=== PATIENT | male | born 1970 | race Hispanic/Latino ===

== ENCOUNTER 2019-07-23 10:48 | Emergency (ER) | payer BC ==
--- NOTE | 2019-07-23 13:39 | ER ---
Nurse's Notes [facility] Name: Rory Soni Age: 48 yrs Sex: Male : 1970 Arrival Date: 07/23/2019 Time: 10:51 Bed 11 Private MD: Diagnosis: Pain in right shoulder Presentation: 07/23 11:20 Presenting complaint: Patient states: thinks pulled a muscle in right arm X 2 weeks. iw Transition of care: patient was not received from another setting of care. Onset of symptoms was July 09, 2019. Risk Assessment: Do you want to hurt yourself or someone else? Patient reports no desire to harm self or others. Initial Sepsis Screen: Does the patient meet any 2 criteria? No. Patient's initial sepsis screen is negative. Does the patient have a suspected source of infection? No. Patient's initial sepsis screen is negative. Care prior to arrival: None. 11:20 Method Of Arrival: Ambulatory iw 11:20 Acuity: EBENEZER 4 iw Triage Assessment: 13:46 General: Appears in no apparent distress. Behavior is calm, cooperative. Injury iw Description:. Historical: - Allergies: 11:21 No Known Allergies; iw - Home Meds: 11:21 None [Active]; iw - PMHx: 11:21 None; iw - PSHx: 11:21 None; iw - Immunization history:: Adult Immunizations. - Coronavirus screen:: The patient has NOT traveled to [place], [place], or [place] in the past 14 days. Proceed with normal triage process as indicated. - Social history:: Smoking status: Smoking status: Patient denies any tobacco usage or history of. - Ebola Screening: : Patient negative for fever greater than or equal to 101.5 degrees Fahrenheit, and additional compatible Ebola Virus Disease symptoms Patient denies exposure to infectious person Patient denies travel to an Ebola-affected area in the 21 days before illness onset No symptoms or risks identified at this time. Screenin:45 Abuse screen: Denies threats or abuse. Denies injuries from another. Nutritional iw screening: No deficits noted. Tuberculosis screening: No symptoms or risk factors identified. Fall Risk None identified. Assessment: 12:30 General: Appears in no apparent distress. Behavior is calm, cooperative. Pain: iw Complains of pain in posterior aspect of right shoulder and anterior aspect of right shoulder Pain currently is 8 out of 10 on a pain scale. Neuro: Level of Consciousness is awake, alert, obeys commands, Oriented to person, place, time, situation, Moves all extremities. Cardiovascular: Capillary refill < 3 seconds in bilateral fingers Patient's skin is warm and dry. Respiratory: Respiratory effort is even, unlabored, Respiratory pattern is regular, symmetrical. Derm: Skin is intact, is healthy with good turgor. Musculoskeletal: Range of motion: intact in all extremities. Vital Signs: 11:21 BP 138 / 85; Pulse 67; Resp 16; Temp 98.7; Pulse Ox 97% on R/A; Weight 81.65 kg; Height iw 5 ft. 4 in. (162.56 cm); Pain 9/10; 11:21 Body Mass Index 30.90 (81.65 kg, 162.56 cm) iw ED Course: 10:51 Patient arrived in ED. rg4 11:21 Triage completed. iw 11:21 Arm band placed on. iw 12:15 Miguel Mcgraw PA is PHCP. jr8 12:15 Chidi Norton MD is Attending Physician. jr8 12:30 Patient has correct armband on for positive identification. iw 13:18 XRAY Shoulder RIGHT 2 view In Process Unspecified. EDMS 13:38 Kian Cueto MD is Referral Physician. jr8 13:46 No provider procedures requiring assistance completed. Patient did not have IV access iw during this emergency room visit. 13:47 Sarah Landaverde, RN is Primary Nurse. iw Administered Medications: No medications were administered Outcome: 13:38 Discharge ordered by . jr8 13:46 Discharged to home ambulatory. iw 13:46 Condition: good 13:46 Discharge instructions given to patient, Instructed on discharge instructions, follow up and referral plans. medication usage, Demonstrated understanding of instructions, follow-up care, medications, Prescriptions given X 1. 13:47 Patient left the ED. iw Signatures: Dispatcher [employer] EDMS Sarah Landaverde RN RN iw Miguel Mcgraw PA PA jr8 Garcia, Rubi rg4
--- NOTE | 2019-07-23 13:39 | EDPHYS ---
Physician Documentation [facility] Name: Rroy Soni Age: 48 yrs Sex: Male : 1970 Arrival Date: 07/23/2019 Time: 10:51 Bed 11 Private MD: ED Physician Chidi Norton HPI: 07/23 13:31 This 48 yrs old Male presents to ER via Ambulatory with complaints of Arm jr8 Injury. 13:31 The patient or guardian complains of pain. The complaints affect the anterior aspect of jr8 right shoulder and posterior aspect of right shoulder. Context: The problem was sustained at work. Associated signs and symptoms: The patient has no apparent associated signs or symptoms. Severity of symptoms: At their worst the symptoms were mild, in the emergency department the symptoms are unchanged. The patient has not experienced similar symptoms in the past. The patient has not recently seen a physician. 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 Stated that since then he has had right shoulder pain that is not improving . Historical: - Allergies: 11:21 No Known Allergies; iw - Home Meds: 11:21 None [Active]; iw - PMHx: 11:21 None; iw - PSHx: 11:21 None; iw - Immunization history:: Adult Immunizations. - Coronavirus screen:: The patient has NOT traveled to [place], [place], or [place] in the past 14 days. Proceed with normal triage process as indicated. - Social history:: Smoking status: Smoking status: Patient denies any tobacco usage or history of. - Ebola Screening: : Patient negative for fever greater than or equal to 101.5 degrees Fahrenheit, and additional compatible Ebola Virus Disease symptoms Patient denies exposure to infectious person Patient denies travel to an Ebola-affected area in the 21 days before illness onset No symptoms or risks identified at this time. ROS: 13:31 Eyes: Negative for injury, pain, redness, and discharge, ENT: Negative for injury, jr8 pain, and discharge, Neck: Negative for injury, pain, and swelling, Cardiovascular: Negative for chest pain, palpitations, and edema, Respiratory: Negative for shortness of breath, cough, wheezing, and pleuritic chest pain, Abdomen/GI: Negative for abdominal pain, nausea, vomiting, diarrhea, and constipation, Back: Negative for injury and pain, Skin: Negative for injury, rash, and discoloration, Neuro: Negative for headache, weakness, numbness, tingling, and seizure. 13:31 MS/extremity: Positive for pain, tenderness, of the posterior aspect of right shoulder and anterior aspect of right shoulder. Exam: 13:31 Eyes: Pupils equal round and reactive to light, extra-ocular motions intact. Lids and jr8 lashes normal. Conjunctiva and sclera are non-icteric and not injected. Cornea within normal limits. Periorbital areas with no swelling, redness, or edema. ENT: Nares patent. No nasal discharge, no septal abnormalities noted. Tympanic membranes are normal and external auditory canals are clear. Oropharynx with no redness, swelling, or masses, exudates, or evidence of obstruction, uvula midline. Mucous membranes moist. Neck: Trachea midline, no thyromegaly or masses palpated, and no cervical lymphadenopathy. Supple, full range of motion without nuchal rigidity, or vertebral point tenderness. No Meningismus. Cardiovascular: Regular rate and rhythm with a normal S1 and S2. No gallops, murmurs, or rubs. Normal PMI, no JVD. No pulse deficits. Respiratory: Lungs have equal breath sounds bilaterally, clear to auscultation and percussion. No rales, rhonchi or wheezes noted. No increased work of breathing, no retractions or nasal flaring. Abdomen/GI: Soft, non-tender, with normal bowel sounds. No distension or tympany. No guarding or rebound. No evidence of tenderness throughout. Back: No spinal tenderness. No costovertebral tenderness. Full range of motion. Skin: Warm, dry with normal turgor. Normal color with no rashes, no lesions, and no evidence of cellulitis. Neuro: Awake and alert, GCS 15, oriented to person, place, time, and situation. Cranial nerves II-XII grossly intact. Motor strength 5/5 in all extremities. Sensory grossly intact. Cerebellar exam normal. Normal gait. 13:31 Musculoskeletal/extremity: Extremities: grossly normal except: noted in the right shoulder: Mild pain to posterior right shoulder and trapezius muscle on right side without decreased ROM , ROM: intact in all extremities, Circulation is intact in all extremities. Sensation intact. Vital Signs: 11:21 BP 138 / 85; Pulse 67; Resp 16; Temp 98.7; Pulse Ox 97% on R/A; Weight 81.65 kg; Height iw 5 ft. 4 in. (162.56 cm); Pain 9/10; 11:21 Body Mass Index 30.90 (81.65 kg, 162.56 cm) iw MDM: 12:52 Patient medically screened. jr8 13:31 Data reviewed: vital signs, nurses notes, radiologic studies, plain films, and as a jr8 result, I will discharge patient. Data interpreted: Pulse oximetry: on room air is 97 %. Interpretation: normal. Counseling: I had a detailed discussion with the patient and/or guardian regarding: the historical points, exam findings, and any diagnostic results supporting the discharge/admit diagnosis, radiology results, the need for outpatient follow up, a orthopedic surgeon, to return to the emergency department if symptoms worsen or persist or if there are any questions or concerns that arise at home. 07/23 12:54 Order name: XRAY Shoulder RIGHT 2 view; Complete Time: 13:46 jr8 Administered Medications: No medications were administered Disposition: 16:48 Co-signature as Attending Physician, Chidi Norton MD I agree with the assessment and kdr plan of care. Disposition: 07/23/19 13:38 Discharged to Home. Impression: Pain in right shoulder. - Condition is Stable. - Discharge Instructions: Shoulder Pain. - Prescriptions for meloxicam 15 mg Oral tablet - take 1 tablet by ORAL route once daily As needed; 20 tablet. - Medication Reconciliation Form, Thank You Letter, Antibiotic Education, Prescription Opioid Use form. - Follow up: Kian Cueto MD; When: 7 - 10 days; Reason: If symptoms return, Recheck today's complaints, Continuance of care, Re-evaluation by your physician. - Problem is new. - Symptoms have improved. Signatures: Dispatcher [employer] EDMS Chidi Norton MD MD kdr Sarah Landaverde RN RN iw Miguel Mcgraw PA PA jr8 Corrections: (The following items were deleted from the chart) 13:47 13:38 07/23/2019 13:38 Discharged to Home. Impression: Pain in right shoulder. iw Condition is Stable. Forms are Medication Reconciliation Form, Thank You Letter, Antibiotic Education, Prescription Opioid Use. Follow up: Kian Cueto; When: 7 - 10 days; Reason: If symptoms return, Recheck today's complaints, Continuance of care, Re-evaluation by your physician. Problem is new. Symptoms have improved. jr8
--- NOTE | 2019-07-23 13:44 | RAD REPORT ---
EXAM DESCRIPTION: RAD - Shoulder Right 2 View - 07/23/2019 1:18 pm CLINICAL HISTORY: PAIN COMPARISON: No comparisons FINDINGS: Mild AC joint arthritic changes are present. An acromial spur is identified. No fracture, dislocation or aggressive marrow lesion.
[2019-07-23 13:55] VITALS: BP 138/85; TEMP 98.7; O2SAT 97
== END 2019-07-23 13:47 | disposition home or self-care (01) ==
LOC: ER 10:48
DX: M25.511 Pain in right shoulder (principal); X50.1XXA Overexertion from prolonged static or awkward postures, initial encounter; Y93.89 Activity, other specified; Y92.9 Unspecified place or not applicable; Y99.0 Civilian activity done for income or pay
CPT/HCPCS: 99283